=== PATIENT | male | born 1965 | race Caucasian/White ===

== ENCOUNTER 2020-12-16 10:29 | Emergency (ER) | payer MEDICARE ==
[~2020-12-16] VITALS: Ht 170 cm; Wt 65.0 kg
[2020-12-16 10:42] VITALS: BP_SYST 152
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
== END 2020-12-16 11:05 | disposition home or self-care (01) ==
LOC: EDUNIT# 10:29 → ER FS 10:32
DX: S05.12XA Contusion of eyeball and orbital tissues, left eye, initial encounter (principal); S60.212A Contusion of left wrist, initial encounter; Y04.8XXA Assault by other bodily force, initial encounter
CPT/HCPCS: 99281

== ENCOUNTER 2021-05-27 14:13 | Emergency (ER) | payer MEDICARE ==
--- NOTE | 2021-05-27 14:23 | ED Psychosocial ---
General Stated Complaint: PSYCH EVALUATION WORK UP History of Present Illness Date Seen by Provider: May 27, 2021 Time Seen by Provider: 14:18 Initial Comments 55-year-old male sent in by [facility] for psych evaluation. States he is concerned because he showed up to his appointment in inappropriate clothing for the weather. Patient has a history of bipolar and I do not feel he is taking his meds or any of his medications correctly or as prescribed. Patient himself denies any suicidal or homicidal ideation. Patient is not sure exactly why they sent him over here. He had no complaints to me Allergies and Home Medications Patient Home Medication List Home Medication List Reviewed: Yes Review of Systems Constitutional: No chills, No fever EENTM: no symptoms reported Respiratory: no symptoms reported Cardiovascular: no symptoms reported Gastrointestinal: no symptoms reported Genitourinary: no symptoms reported Musculoskeletal: no symptoms reported Skin: no symptoms reported Psychiatric/Neurological: See HPI Physical Exam Vital Signs - First Documented 05/27/21 14:26 Temp 36.5 Pulse 112 Resp 16 B/P (MAP) 128/72 (90) Pulse Ox 97 O2 Delivery Room Air Capillary Refill : Height, Weight, BMI Height: '" Weight: lbs. oz. kg; 22.00 BMI Method: General Appearance: WD/WN, no apparent distress HEENT: normal ENT inspection Neck: full range of motion, supple Respiratory: chest non-tender, lungs clear, normal breath sounds Cardiovascular: normal peripheral pulses, regular rate, rhythm Gastrointestinal: non tender, soft Extremities: non-tender, normal inspection Neurologic/Psychiatric: alert Appearance/Memory: disheveled Behavior/Eye Contact: normal speech, avoids eye contact Thoughts/Hallucinations: other (Denies suicidal or homicidal ideations) Skin: normal color, warm/dry Progress/Results/Core Measures Results/Orders Lab Results Laboratory Tests Test 05/27/21 14:28 Range/Units White Blood Count 9.8 4.3-11.0 10^3/uL Red Blood Count 5.82 H 4.30-5.52 10^6/uL Hemoglobin 14.8 13.3-17.7 g/dL Hematocrit 47 40-54 % Mean Corpuscular Volume 81 80-99 fL Mean Corpuscular Hemoglobin 25 25-34 pg Mean Corpuscular Hemoglobin Concent 31 L 32-36 g/dL Red Cell Distribution Width 14.6 H 10.0-14.5 % Platelet Count 294 130-400 10^3/uL Mean Platelet Volume 11.3 9.0-12.2 fL Immature Granulocyte % (Auto) 0 % Neutrophils (%) (Auto) 79 H 42-75 % Lymphocytes (%) (Auto) 14 12-44 % Monocytes (%) (Auto) 5 0-12 % Eosinophils (%) (Auto) 0 0-10 % Basophils (%) (Auto) 1 0-10 % Neutrophils # (Auto) 7.8 1.8-7.8 X 10^3 Lymphocytes # (Auto) 1.4 1.0-4.0 X 10^3 Monocytes # (Auto) 0.5 0.0-1.0 X 10^3 Eosinophils # (Auto) 0.0 0.0-0.3 10^3/uL Basophils # (Auto) 0.1 0.0-0.1 10^3/uL Immature Granulocyte # (Auto) 0.0 0.0-0.1 10^3/uL My Orders Orders - LEANA CAZARES DO Ua Culture If Indicated (05/27/21 14:25) Cbc With Automated Diff (05/27/21 14:25) Comprehensive Metabolic Panel (05/27/21 14:25) Alcohol (05/27/21 14:25) Drug Screen Stat (Urine) (05/27/21 14:25) Acetaminophen (05/27/21 14:25) Salicylate (05/27/21 14:25) Bh Status Checks/Observation Q15M (05/27/21 14:25) Vital Signs/I&O 05/27/21 14:26 Temp 36.5 Pulse 112 Resp 16 B/P (MAP) 128/72 (90) Pulse Ox 97 O2 Delivery Room Air Progress Progress Note : Progress Note Patient did not feel he needed to be here, patient was not wanting a psych evaluation. He is not homicidal or suicidal. In the absence of any homicidal suicidal ideations I do not feel there is a need to hold him. He wants to leave AMA and will go back over to [facility]. Patient was stable upon leaving the ER Initial ECG Impression Date: May 27, 2021 Initial ECG Impression Time: 14:24 Initial ECG Rate: 97 Initial ECG Rhythm: Normal Sinus, PAC Initial ECG Impression: Nonspecific Changes Comment no acute changes Departure Impression Primary Impression: Encounter for psychological evaluation Disposition: 07 AGAINST MEDICAL ADVICE Condition: Stable Departure-Patient Inst. Referrals: SELF,LAURENT VILLA (PCP/Family) Primary Care Physician LEANA CAZARES DO May 27, 2021 14:23
[2021-05-27 14:26] VITALS: BP 128/72
[2021-05-27 14:38] LABS: BASOPHILS % (AUTO) 1 % (0-10); EOSINOPHILS % (AUTO) 0 % (0-10); HEMATOCRIT 47 % (40-54); HEMOGLOBIN 14.8 g/dL (13.3-17.7); LYMPHOCYTES % (AUTO) 14 % (12-44); MEAN CORPUSCULAR HEMOGLOBIN 25 pg (25-34); MEAN CORPUSCULAR HGB CONC 31 g/dL (32-36); MEAN CORPUSCULAR VOLUME 81 fL (80-99); MEAN PLATELET VOLUME 11.3 fL (9.0-12.2); MONOCYTES % (AUTO) 5 % (0-12); NEUTROPHILS % (AUTO) 79 % (42-75); PLATELET COUNT 294 10^3/uL (130-400); WHITE BLOOD COUNT 9.8 10^3/uL (4.3-11.0)
[2021-05-27 14:39] LABS: BASOPHILS # (AUTO) 0.1 10^3/uL (0.0-0.1); LYMPHOCYTES # (AUTO) 1.4 X 10^3 (1.0-4.0); MONOCYTES # (AUTO) 0.5 X 10^3 (0.0-1.0); NEUTROPHILS # (AUTO) 7.8 X 10^3 (1.8-7.8)
[2021-05-27 15:01] LABS: ALANINE AMINOTRANSFERASE 27 U/L (0-55); ALKALINE PHOSPHATASE 91 U/L (40-136); BILIRUBIN,TOTAL 0.9 MG/DL (0.1-1.0); BUN/CREATININE RATIO 13; CALCIUM 9.2 MG/DL (8.5-10.1); CARBON DIOXIDE 25 MMOL/L (21-32); CHLORIDE 101 MMOL/L (98-107); CREATININE SERUM 0.91 MG/DL (0.60-1.30); GFR ESTIMATED 99; GLUCOSE 171 MG/DL (70-105); POTASSIUM 3.5 MMOL/L (3.6-5.0); SODIUM 141 MMOL/L (135-145); TOTAL PROTEIN 7.4 GM/DL (6.4-8.2)
[2021-05-27 15:02] LABS: ACETAMINOPHEN < 10 UG/ML (10-30); SALICYLATE < 0.3 MG/DL (5.0-20.0)
== END 2021-05-27 14:41 | disposition left against medical advice (07) ==
LOC: EDUNIT# 14:13 → ER FS 14:16
DX: Z13.30 Encounter for screening examination for mental health and behavioral disorders, unspecified (principal)
CPT/HCPCS: 36415; 80053; 85025; 99283; G0480 ×3; 80320; 80329; 93005

== ENCOUNTER 2022-04-13 03:03 | Emergency (ER) | payer MEDICARE ==
[2022-04-13] MEDS ORDERED: TETANUS,DIPTH,PERTUSS P/F (BOOSTRIX) 0.5 ML VIAL IM ONE (03:15)
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
[2022-04-13 03:19] LABS: BASOPHILS # (AUTO) 0.2 10^3/uL (0.0-0.1); BASOPHILS % (AUTO) 1 % (0-10); EOSINOPHILS # (AUTO) 0.1 10^3/uL (0.0-0.3); EOSINOPHILS % (AUTO) 0 % (0-10); HEMATOCRIT 48 % (40-54); HEMOGLOBIN 14.4 g/dL (13.3-17.7); LYMPHOCYTES # (AUTO) 4.7 10^3/uL (1.0-4.0); LYMPHOCYTES % (AUTO) 15 % (12-44); MEAN CORPUSCULAR HEMOGLOBIN 25 pg (25-34); MEAN CORPUSCULAR HGB CONC 30 g/dL (32-36); MEAN CORPUSCULAR VOLUME 83 fL (80-99); MONOCYTES # (AUTO) 1.1 10^3/uL (0.0-1.0); MONOCYTES % (AUTO) 3 % (0-12); NEUTROPHILS # (AUTO) 24.4 10^3/uL (1.8-7.8); NEUTROPHILS % (AUTO) 78 % (42-75); PLATELET COUNT 440 10^3/uL (130-400)
[2022-04-13 03:26] LABS: WHITE BLOOD COUNT 31.5 10^3/uL (4.3-11.0)
[2022-04-13] MEDS ORDERED: NS IV 1000 ML 1,000 ML IV SCH (03:30)
[2022-04-13] MEDS ORDERED: CEFEPIME INJECTION 1,000 MG in NS (IVPB) 50 ML IV ONE (03:30)
[2022-04-13 03:51] LABS: BAND NEUTROPHILS 2 %; LYMPHOCYTES % (MANUAL) 12 %; METAMYELOCYTES % 1 %; MONOCYTES % (MANUAL) 4 %; MYELOCYTES % 3 %; NEUTROPHILS % (MANUAL) 77 %; REACTIVE LYMPHOCYTES 1 %
[2022-04-13 03:52] LABS: PLATELET ESTIMATE INCREASED; RBC MORPH NORMAL
[2022-04-13 03:55] LABS: CHLORIDE 103 MMOL/L (98-107); POTASSIUM 4.2 MMOL/L (3.6-5.0); SODIUM 142 MMOL/L (135-145)
[2022-04-13 03:56] LABS: ALANINE AMINOTRANSFERASE 41 U/L (0-55); ALKALINE PHOSPHATASE 278 U/L (40-136); BILIRUBIN,TOTAL 0.2 MG/DL (0.1-1.0); BUN/CREATININE RATIO 12; CALCIUM 9.1 MG/DL (8.5-10.1); CARBON DIOXIDE 10 MMOL/L (21-32); CREATININE SERUM 1.29 MG/DL (0.60-1.30); GFR ESTIMATED 65; GLUCOSE 350 MG/DL (70-105); MAGNESIUM 2.5 MG/DL (1.6-2.4)
[2022-04-13 03:57] LABS: ALBUMIN 3.5 GM/DL (3.2-4.5); LIPASE 26 U/L (8-78); TOTAL PROTEIN 7.9 GM/DL (6.4-8.2)
[2022-04-13 03:59] LABS: PROTHROMBIN TIME PATIENT 13.6 SEC (12.2-14.7)
[2022-04-13 04:18] LABS: BILIRUBIN,URINE NEGATIVE (NEGATIVE); CLARITY,URINE SL CLOUDY; COLOR,URINE YELLOW; GLUCOSE, URINE (UA) NEGATIVE (NEGATIVE); KETONES,URINE NEGATIVE (NEGATIVE); LEUKOCYTE ESTERASE ,URINE NEGATIVE (NEGATIVE); NITRITE,URINE NEGATIVE (NEGATIVE); PROTEIN,URINE TRACE (NEGATIVE)
[2022-04-13 04:30] LABS: AMPHETAMINE SCREEN, URINE NEGATIVE (NEGATIVE); BARBITURATE SCREEN URINE NEGATIVE (NEGATIVE); BENZODIAZEPINES SCREEN URINE NEGATIVE (NEGATIVE); CANNABINOID SCREEN, URINE NEGATIVE (NEGATIVE); COCAINE SCREEN URINE NEGATIVE (NEGATIVE); METHADONE STAT NEGATIVE (NEGATIVE); OPIATE SCREEN URINE NEGATIVE (NEGATIVE); OXYCODONE STAT NEGATIVE (NEGATIVE); PROPOXYPHENE STAT NEGATIVE (NEGATIVE); TRICYCLIC ANTIDEPRESSANTS SCRE NEGATIVE (NEGATIVE)
[2022-04-13 04:31] VITALS: BP 144/33
[2022-04-13 04:33] LABS: AMORPHOUS SEDIMENT,UR FEW AMOR URATES /LPF; BACTERIA,URINE NEGATIVE /HPF; RBC,URINE RARE /HPF; RENAL EPITHELIAL CELLS,URINE 0-2 /HPF; WBC,URINE 0-2 /HPF
[2022-04-13 04:34] LABS: GRANULAR CASTS,URINE 0-2 /LPF
--- NOTE | 2022-04-13 06:08 | Diagnostic Imaging Report ---
Clinical indication: Patient brought in for follow-up. Possible head injury. Exam: Head CT without IV contrast with sagittal and coronal reformations. Axial CT scan of the cervical spine with sagittal and coronal reformations. Auto Exposure Controls were utilized during the CT exam to meet ALARA standards for radiation dose reduction. Comparison: None. Findings: Head CT: There is no evidence of acute cerebral infarct, intracranial hemorrhage, or gross mass effect. The brain parenchymal volume appears appropriate for patient's age. There is normal gabriel-white matter distinction. There is no significant midline shift or herniation. There is no evidence of hydrocephalus. The basal cisterns are unremarkable. The skull, extracranial soft tissue, and orbits are unremarkable. There is mild mucosal thickening involving both maxillary sinuses with the left side more than the right. Temporal bones show no significant abnormality. Cervical spine: There is no acute cervical spine fracture or dislocation. There are mildly hypertrophic spurs involving the cervical spine. There is at least moderate left C5-C6 neural foramen narrowing due to uncinate spurs and moderate left C3-C4 neural foramen narrowing due to uncinate spurs. There is no significant bony central canal narrowing. There is no significant neck soft tissue abnormality. Visualized upper lung antonio are clear. Impression: 1: There is no evidence of acute intracranial process. There is no skull fracture. 2: There is cervical spine degenerative disease with no acute fracture or dislocation. I agree with [employer] report. Dictated by: Dictated on workstation # [id number]
--- NOTE | 2022-04-13 08:29 | Diagnostic Imaging Report ---
Clinical indications: Patient is status post fall and altered mental status. EXAM: CT scan of the chest, abdomen and pelvis, without IV contrast. Sagittal and coronal reformatted images are created. Auto Exposure Controls were utilized during the CT exam to meet ALARA standards for radiation dose reduction. COMPARISON: None. FINDINGS: CHEST: There is mild atelectasis involving the posterior aspects of both lungs. There is no pleural effusion or pneumothorax. There is no mediastinal mass, fluid collection or lymphadenopathy. There is no hilar lymphadenopathy. There is no axillary lymphadenopathy. There is air and fluid mildly distended esophagus seen which may related to gastroesophageal reflux or esophageal dysmotility. ABDOMEN AND PELVIS: The liver, pancreas, and adrenal glands are unremarkable. There is calcified granuloma within the spleen. Spleen is otherwise unremarkable. Gallbladder is predominantly decompressed. Gallbladder is unremarkable as visualized. There are nonobstructive stones within the left kidney with the largest one measuring 5 mm in the upper pole left kidney. There is no hydronephrosis. Bladder is significantly fluid-filled with diffuse bladder wall thickening. There are small diverticulum involving the posterior superior aspect of the bladder. Prostate gland is mildly enlarged measuring 5.0 cm in transverse dimensions. There is diverticulosis involving the descending colon with no CT evidence of diverticulitis. Appendix is unremarkable. Hiatal hernia seen. There is no intra-abdominal free air or free fluid. There is no intra-abdominal pelvic lymphadenopathy. Extra abdominal and extrapelvic soft tissue structures are unremarkable. BONES: There is a transitional lumbosacral vertebra which will be designated as S1. There is a small S1-S2 intervertebral disk. There are mild compression fracture deformities involving the T5, T6, T8, T9, T10, T12, L1, L4, and L5 vertebra. There is roughly 25% loss of height involving the upper aspect of the L5 vertebra. There is roughly 3 mm of retropulsed component of the upper aspect of the L5 vertebra. There is no significant central canal narrowing at the L5 burst fracture region. The rest of the above-described fractures demonstrate roughly 10% or less loss of height. There is a slightly impacted slightly displaced fracture left femoral neck with varus angulation. The left femoroacetabular joint space is intact. There are no other fractures seen. IMPRESSION: 1: There are acute mild compression fracture deformities involving the T5, T6, T8, T9, T10, T12, L1, and L4 vertebra. 2: There is a mild burst fracture involving the upper aspect of the L5 vertebra with no significant central canal stenosis. 3: There is a slightly displaced fracture of the left femoral neck with varus angulation. The left femoral acetabular joint spaces intact. 4: There is no other acute thoracic, abdominal or pelvic abnormality. There is no pneumothorax, intra-abdominal free fluid or air. There is no solid organ injury. I agree with [employer] report. Dictated by: Dictated on workstation # [id number]
== END 2022-04-13 04:55 | disposition short-term general hospital (02) ==
LOC: EDUNIT# 03:03 → ER FS 03:05
DX: S72.002A Fracture of unspecified part of neck of left femur, initial encounter for closed fracture (principal); S22.050A Wedge compression fracture of T5-T6 vertebra, initial encounter for closed fracture; S32.051A Stable burst fracture of fifth lumbar vertebra, initial encounter for closed fracture; S32.030A Wedge compression fracture of third lumbar vertebra, initial encounter for closed fracture; S00.81XA Abrasion of other part of head, initial encounter; J96.90 Respiratory failure, unspecified, unspecified whether with hypoxia or hypercapnia; I95.89 Other hypotension; Z28.310 Unvaccinated for COVID-19; Z20.822 Contact with and (suspected) exposure to COVID-19; W18.30XA Fall on same level, unspecified, initial encounter
CPT/HCPCS: 36415; 51702; 70450; 71250; 72125; 74176; 80053; 80306; 81000; 83605; 83690; 83735; 84484; 85007; 85027; 85610; 85730; 87040; 87077; 87186; 87636; 90715

== ENCOUNTER 2022-09-13 06:38 | Emergency (ER) | payer MEDICARE, MEDICAID ==
[2022-09-13 06:39] VITALS: BP 159/77
[2022-09-13] MEDS ORDERED: NS IV 1000 ML 1,000 ML IV STA (06:43)
[2022-09-13] MEDS ORDERED: LEVE500T99 PO (06:52)
--- NOTE | 2022-09-13 06:52 | ED General ---
General Chief Complaint: Neurological Problems Stated Complaint: SEIZURE Source of Information: Patient, EMS, Senior Care Records, Old Records Exam Limitations: No Limitations (IMELDA FISHER MD) History of Present Illness Date Seen by Provider: September 13, 2022 Time Seen by Provider: 06:40 Initial Comments 57-year-old male with developmental delay coming in via EMS from his assisted living facility after a seizure-like episode. He had witnessed convulsions lasting a couple minutes where he turned blue. On EMS arrival, he was no longer seizing, and was postictal. He had urinated on himself. His glucose was just above 160. Vitals were otherwise unremarkable for EMS. Reportedly does not have a seizure disorder, but has had a seizure a couple of months ago per long term staff. He does not take any medicines for this. Otherwise denying any fever, cough, chest pain, shortness of breath, abdominal pain, or any other concerns. (IMELDA FISHER MD) Allergies and Home Medications Allergies Coded Allergies: No Known Drug Allergies (Unverified , 04/13/22) Patient Home Medication List Home Medication List Reviewed: Yes (IMELDA FISHER MD) Home Medication List Reviewed: Yes (SUE CLINE MD) Levetiracetam (Keppra) 500 Mg Tablet, 500 MG PO BID Prescribed by: IMELDA FISHER on 09/13/22 0652 Review of Systems Review of Systems Constitutional: No fever EENTM: no symptoms reported Respiratory: see HPI Cardiovascular: no symptoms reported Gastrointestinal: no symptoms reported Genitourinary: no symptoms reported Musculoskeletal: no symptoms reported Skin: no symptoms reported Psychiatric/Neurological: See HPI Hematologic/Lymphatic: No Symptoms Reported (IMELDA FISHER MD) All Other Systems Reviewed Negative Unless Noted: Yes (IMELDA FISHER MD) Past Lvucqbn-Alabzy-Yqhhxe Hx Patient Social History Substance use?: No (IMELDA FISHER MD) Immunizations Up To Date First/Initial COVID19 Vaccinat: Yes Second COVID19 Vaccination Danny: Yes (IMELDA FISHER MD) Past Medical History Surgery/Hospitalization HX: Patient poor historian, unknown (IMELDA FISHER MD) Physical Exam Vital Signs Vital Signs - First Documented 09/13/22 06:39 Pulse 96 Resp 18 B/P (MAP) 159/77 (104) Pulse Ox 94 O2 Delivery Room Air (SUE CLINE MD) Vital Signs Capillary Refill : (IMELDA FISHER MD) Height, Weight, BMI Height: '" Weight: lbs. oz. kg; BMI Method: General Appearance: No Apparent Distress, WD/WN, Other (Follow-up on the left side of his mouth, covered in urine) Eyes: Bilateral Eye Normal Inspection, Bilateral Eye PERRL HEENT: PERRL/EOMI, Normal ENT Inspection, Pharynx Normal Neck: Full Range of Motion, Normal Inspection, Non Tender, Supple Respiratory: Chest Non Tender, Lungs Clear, Normal Breath Sounds, No Accessory Muscle Use, No Respiratory Distress Cardiovascular: Regular Rate, Rhythm, No Edema, Normal Peripheral Pulses Gastrointestinal: Normal Bowel Sounds, Non Tender, Soft; No Distended, No G uarding Back: Normal Inspection, No CVA Tenderness, No Vertebral Tenderness Extremity: Normal Capillary Refill, Normal Inspection, Normal Range of Motion, Non Tender, No Calf Tenderness, No Pedal Edema Neurologic/Psychiatric: Alert, Oriented x3, No Motor/Sensory Deficits, Normal Mood/Affect, strength and conditioning coach II-XII Norm as Tested Skin: Normal Color, Warm/Dry (IMELDA FISHER MD) Focused Exam Lactate Level 09/13/22 06:44: Lactic Acid Level 9.36*H 09/13/22 08:14: Lactic Acid Level 2.62*H (SUE CLINE MD) Lactic Acid Level Laboratory Tests Test 09/13/22 06:44 09/13/22 08:14 Lactic Acid Level 9.36 MMOL/L (0.50-2.00) *H 2.62 MMOL/L (0.50-2.00) *H (SUE CLINE MD) Progress/Results/Core Measures Suspected Sepsis SIRS Temperature: Pulse: Respiratory Rate: Laboratory Tests 09/13/22 06:44: Blood Pressure / Mean: 09/13/22 06:44: Laboratory Tests 09/13/22 06:44: (IMELDA FISHER MD) Results/Orders Lab Results Laboratory Tests Test 09/13/22 06:44 09/13/22 08:14 09/13/22 08:37 Range/Units White Blood Count 10.7 4.3-11.0 10^3/uL Red Blood Count 5.37 4.30-5.52 10^6/uL Hemoglobin 11.5 L 13.3-17.7 g/dL Hematocrit 40 40-54 % Mean Corpuscular Volume 74 L 80-99 fL Mean Corpuscular Hemoglobin 21 L 25-34 pg Mean Corpuscular Hemoglobin Concent 29 L 32-36 g/dL Red Cell Distribution Width 15.9 H 10.0-14.5 % Platelet Count 487 H 130-400 10^3/uL Mean Platelet Volume 10.3 9.0-12.2 fL Immature Granulocyte % (Auto) 2 % Neutrophils (%) (Auto) 57 42-75 % Lymphocytes (%) (Auto) 32 12-44 % Monocytes (%) (Auto) 6 0-12 % Eosinophils (%) (Auto) 2 0-10 % Basophils (%) (Auto) 1 0-10 % Neutrophils # (Auto) 6.2 1.8-7.8 10^3/uL Lymphocytes # (Auto) 3.4 1.0-4.0 10^3/uL Monocytes # (Auto) 0.7 0.0-1.0 10^3/uL Eosinophils # (Auto) 0.3 0.0-0.3 10^3/uL Basophils # (Auto) 0.1 0.0-0.1 10^3/uL Immature Granulocyte # (Auto) 0.2 H 0.0-0.1 10^3/uL Percent Immature Platelet Fraction 3.6 0.0-7.6 % Prothrombin Time 13.5 12.2-14.7 SEC INR Comment 1.0 0.8-1.4 Activated Partial Thromboplast Time 31 24-35 SEC Sodium Level 141 135-145 MMOL/L Potassium Level 4.0 3.6-5.0 MMOL/L Chloride Level 99 98-107 MMOL/L Carbon Dioxide Level 18 L 21-32 MMOL/L Anion Gap 24 H 5-14 MMOL/L Blood Urea Nitrogen 11 7-18 MG/DL Creatinine 0.98 0.60-1.30 MG/DL Estimat Glomerular Filtration Rate 89 BUN/Creatinine Ratio 11 Glucose Level 184 H 70-105 MG/DL Lactic Acid Level 9.36 *H 2.62 *H 0.50-2.00 MMOL/L Calcium Level 9.3 8.5-10.1 MG/DL Corrected Calcium 9.9 8.5-10.1 MG/DL Magnesium Level 1.7 1.6-2.4 MG/DL Total Bilirubin 0.2 0.1-1.0 MG/DL Aspartate Amino Transf (AST/SGOT) 16 5-34 U/L Alanine Aminotransferase (ALT/SGPT) 14 0-55 U/L Alkaline Phosphatase 123 40-136 U/L Troponin I < 0.30 <0.30 NG/ML Pro-B-Type Natriuretic Peptide 160.3 H <125.0 PG/ML Total Protein 7.8 6.4-8.2 GM/DL Albumin 3.3 3.2-4.5 GM/DL Lipase 22 8-78 U/L Urine Color YELLOW Urine Clarity CLEAR Urine pH 6.0 5-9 Urine Specific [place] 1.020 1.016-1.022 Urine Protein NEGATIVE NEGATIVE Urine Glucose (UA) NEGATIVE NEGATIVE Urine Ketones NEGATIVE NEGATIVE Urine Nitrite NEGATIVE NEGATIVE Urine Bilirubin NEGATIVE NEGATIVE Urine Urobilinogen 0.2 < = 1.0 MG/DL Urine Leukocyte Esterase NEGATIVE NEGATIVE Urine RBC (Auto) NEGATIVE NEGATIVE Urine RBC NONE /HPF Urine WBC 0-2 /HPF Urine Squamous Epithelial Cells RARE /HPF Urine Crystals NONE /LPF Urine Bacteria NEGATIVE /HPF Urine Casts NONE /LPF Urine Mucus MODERATE H /LPF Urine Culture Indicated NO Urine Opiates Screen NEGATIVE NEGATIVE Urine Oxycodone Screen NEGATIVE NEGATIVE Urine Methadone Screen NEGATIVE NEGATIVE Urine Propoxyphene Screen NEGATIVE NEGATIVE Urine Barbiturates Screen NEGATIVE NEGATIVE Ur Tricyclic Antidepressants Screen NEGATIVE NEGATIVE Urine Phencyclidine Screen NEGATIVE NEGATIVE Urine Amphetamines Screen NEGATIVE NEGATIVE Urine Methamphetamines Screen NEGATIVE NEGATIVE Urine Benzodiazepines Screen NEGATIVE NEGATIVE Urine Cocaine Screen NEGATIVE NEGATIVE Urine Cannabinoids Screen NEGATIVE NEGATIVE (SUE CLINE MD) My Orders Orders - SUE CLINE MD Lactic Acid Analyzer (09/13/22 08:08) Straight Cath For Spec.-Adult (09/13/22 08:31) (SUE CLINE MD) Vital Signs/I&O 09/13/22 06:39 Pulse 96 Resp 18 B/P (MAP) 159/77 (104) Pulse Ox 94 O2 Delivery Room Air (SUE CLINE MD) Vital Signs/I&O Capillary Refill : (IMELDA FISHER MD) Progress Note : Progress Note 57-year-old male with above history coming in after seizure-like episode. ABCs were intact and vitals were stable on presentation. Glucose just above 160 for EMS. An IV was placed and basic labs were obtained. CT head and chest x-ray ordered to assess for intracranial hemorrhage versus large mass versus other sources of infection in his lungs could lower his seizure threshold. On my interpretation of the CT head I do not see any obvious intracranial hemorrhage or large mass. It appears similar to his prior CT head from April of last year. EKG ordered and interpreted by me showing no acute ischemic changes. He was given a bolus of IV fluids as well as Keppra. He will be signed out to the oncoming physician pending his work-up. The patient is known to myself and the nursing staff, and he does seem to be at his mental baseline. I suspect if his work-up is normal, he likely will go back to the assisted living facility with outpatient neurology follow-up. I will personally send in a prescription for Keppra as an outpatient to give the patient time to follow-up with a neurologist and/or his PCP. (IMELDA FISHER MD) Progress Note #1: Time: 07:15 Progress Note I assumed care of the patient from Dr. Fisher at shift change. The lactic acid was called from the lab and a value of 9.36. This would be consistent with him having a seizure this morning. He is getting IV fluids and we will recheck the level of value. His complete blood count does not show an elevated white blood cell count as it is 10.7. He had no acute abnormalities on his CT head compared to one from April 2022. On my personal interpretation of the 1 view chest x-ray I did not appreciate any acute infiltrate or mass. Progress Note #2: Time: 07:34 Progress Note Comprehensive metabolic profile showed mild elevation of his anion gap to 24 and CO2 of 18 which again would be consistent with his seizure activity. His glucose was slightly elevated to 184. He had a negative troponin less than 0.3. His lipase was not elevated at 22. No specific source for infection found on testing or exam. Will obtain urinalysis and allow fluids and Keppra to finish infusing. Will repeat the lactic acid after the fluids have infused to ensure that it was coming down and again showing that it was consistent with him having a seizure this morning. It was confirmed by a friend that had come in with him, Johnny Nicholson, that he has had seizures before. This goes along with the nursing report from [facility] that he had previously had a seizure. Anticipate continuing on plan of discharged home with Keppra prescription that had already been sent to the pharmacy. This would give him a chance to follow-up with primary care and get in with neurology if needed for continued evaluation and work-up. Progress Note #3: Time: 08:21 Progress Note Patient continues to do well without any new complaints. He has had no seizure activity here in the ED. Tolerating p.o. A repeat lactic acid was sent to the lab after fluids infused. We will add on a straight cath for specimen since he has tried to pee twice but has not been able to provide a specimen and he does wear adult briefs. Progress Note #4: Time: 08:49 Progress Note Lab called to notify us that the repeat lactic acid did come down to 2.62. Again with no specific infection found on exam or testing this gives further validity to a lactic acid being elevated from seizure activity. Awaiting urine and will have paperwork ready for discharge to home 0856 UA without infection and UDS all clear. Will release to [facility] and have them start him on Keppra bid 1 month supply until he can check back with Dr. Bennett or Neurology (SUE CLINE MD) ECG Initial ECG Impression Date: September 13, 2022 Initial ECG Impression Time: 06:45 Initial ECG Rate: 95 Initial ECG Rhythm: Normal Sinus Comment Narrow QRS, normal axis, no significant ST changes or T wave abnormalities (IMELDA FISHER MD) Initial ECG Comparisson: Unchanged (May) Comment Normal sinus rhythm with a heart rate of 95 bpm and a [place] interval of [address] elevation. QT interval 372 ms with a QTc interval 425 ms. Overall appears similar to prior tracing from May 27, 2021. (SUE CLINE MD) Diagnostic Imaging Diagonstic Imaging: Xray (chest), CT (head) (IMELDA FISHER MD) Diagonstic Imaging: CT (head) Plain Films/CT/US/NM/MRI: head Comments NAME: JOEL BAUTISTA [facility] REC#: [id number] PT STATUS: REG ER : 1965 PHYSICIAN: IMELDA FISHER MD ADMIT DATE: 09/13/22/ER FS Draft Date of Exam:09/13/22 CT HEAD WO PROCEDURE: CT head without contrast. TECHNIQUE: Multiple contiguous axial images were obtained through the brain without the use of intravenous contrast. Auto Exposure Controls were utilized during the CT exam to meet ALARA standards for radiation dose reduction. INDICATION: 57-year-old male with altered mental status Comparisons: 04/13/2022 FINDINGS: Midline structures are not displaced. Lateral, 3rd and 4th ventricles are normal in size, shape and anatomic position. There is no mass, mass effect, hydrocephalus or hemorrhage. Aguilar-white differentiation is normal. There is no sulcal effacement. There are no abnormal extra-axial fluid collections or hemorrhage. Basilar cisterns appear normal. Sinuses, orbits and mastoid air cells are unremarkable. Bone windows show no calvarial changes. IMPRESSION: Some mild atrophy. Otherwise unremarkable nonenhanced CT brain. If symptoms warrant or persist an MRI may be of further value. Dictated on workstation # [id number] Dict: 09/13/22705 Trans: 09/13/22 0710 [facility] [id number] Interpreted by: NIGHAT TEE MD Electronically signed by: Reviewed: Reviewed by Me (I reviewed the radiologist report at 11 16) Diagonstic Imaging: Xray Plain Films/CT/US/NM/MRI: chest Comments [facility] [place] NAME: JOEL BAUTISTA [facility] REC#: [id number] PT STATUS: REG ER : 1965 PHYSICIAN: IMELDA FISHER MD ADMIT DATE: 09/13/22/ER FS Draft Date of Exam:09/13/22 CHEST 1 VIEW AP/PA ONLY Indication: Altered mental status, shortness of breath Comparisons: None FINDINGS: Single view chest shows the cardiac contour to be upper limits normal. No consolidations are seen. There is some mild central venous prominence. Background chronic parenchymal changes are seen. There is no effusion or pneumothorax. There is a moderate to large hiatal hernia. Soft tissues and bony thorax are unremarkable. IMPRESSION:. 1. Some mild central venous prominence with some chronic background parenchymal changes but no acute consolidations. 2. Moderate size hiatal hernia. Dictated on workstation # [id number] Dict: 09/13/22723 Trans: 09/13/22 0734 [facility] [id number] Interpreted by: NIGHAT TEE MD Electronically signed by: Reviewed: Reviewed by Me (SUE CLINE MD) Departure Impression Primary Impression: Observed seizure-like activity Disposition: HOME, SELF-CARE Condition: Stable Departure-Patient Inst. Decision time for Depature: 08:56 (SUE CLINE MD) Referrals: SELFLAURENT MD (PCP/Family) Primary Care Physician Patient Instructions: Seizures, Adult ED Add. Discharge Instructions: Stay well-hydrated and drink plenty of fluids. Start taking the Keppra 500 mg twice a day for seizures. Check with primary care about further work-up and evaluation of the new onset seizures. All discharge instructions reviewed with patient and/or family. Voiced understanding. Scripts Levetiracetam (Keppra) 500 Mg Tablet 500 MG PO BID for 30 Days, #60 TAB Prov: IMELDA FISHER MD 09/13/22 IMELDA FISHER MD September 13, 2022 06:52 SUE CLINE MD September 13, 2022 07:18
[2022-09-13 07:09] LABS: BASOPHILS # (AUTO) 0.1 10^3/uL (0.0-0.1); BASOPHILS % (AUTO) 1 % (0-10); EOSINOPHILS # (AUTO) 0.3 10^3/uL (0.0-0.3); EOSINOPHILS % (AUTO) 2 % (0-10); HEMATOCRIT 40 % (40-54); HEMOGLOBIN 11.5 g/dL (13.3-17.7); LYMPHOCYTES # (AUTO) 3.4 10^3/uL (1.0-4.0); LYMPHOCYTES % (AUTO) 32 % (12-44); MEAN CORPUSCULAR HEMOGLOBIN 21 pg (25-34); MEAN CORPUSCULAR HGB CONC 29 g/dL (32-36); MEAN CORPUSCULAR VOLUME 74 fL (80-99); MEAN PLATELET VOLUME 10.3 fL (9.0-12.2); MONOCYTES # (AUTO) 0.7 10^3/uL (0.0-1.0); MONOCYTES % (AUTO) 6 % (0-12); NEUTROPHILS # (AUTO) 6.2 10^3/uL (1.8-7.8); NEUTROPHILS % (AUTO) 57 % (42-75); PLATELET COUNT 487 10^3/uL (130-400); WHITE BLOOD COUNT 10.7 10^3/uL (4.3-11.0)
--- NOTE | 2022-09-13 07:10 | Diagnostic Imaging Report ---
PROCEDURE: CT head without contrast. TECHNIQUE: Multiple contiguous axial images were obtained through the brain without the use of intravenous contrast. Auto Exposure Controls were utilized during the CT exam to meet ALARA standards for radiation dose reduction. INDICATION: 57-year-old male with altered mental status Comparisons: 04/13/2022 FINDINGS: Midline structures are not displaced. Lateral, 3rd and 4th ventricles are normal in size, shape and anatomic position. There is no mass, mass effect, hydrocephalus or hemorrhage. Aguilar-white differentiation is normal. There is no sulcal effacement. There are no abnormal extra-axial fluid collections or hemorrhage. Basilar cisterns appear normal. Sinuses, orbits and mastoid air cells are unremarkable. Bone windows show no calvarial changes. IMPRESSION: Some mild atrophy. Otherwise unremarkable nonenhanced CT brain. If symptoms warrant or persist an MRI may be of further value. Dictated by: Dictated on workstation # [id number]
[2022-09-13 07:11] LABS: PROTHROMBIN TIME PATIENT 13.5 SEC (12.2-14.7)
[2022-09-13 07:27] LABS: SODIUM 141 MMOL/L (135-145)
[2022-09-13 07:28] LABS: ALANINE AMINOTRANSFERASE 14 U/L (0-55); ALKALINE PHOSPHATASE 123 U/L (40-136); BILIRUBIN,TOTAL 0.2 MG/DL (0.1-1.0); BUN/CREATININE RATIO 11; CALCIUM 9.3 MG/DL (8.5-10.1); CARBON DIOXIDE 18 MMOL/L (21-32); CHLORIDE 99 MMOL/L (98-107); CREATININE SERUM 0.98 MG/DL (0.60-1.30); GFR ESTIMATED 89; GLUCOSE 184 MG/DL (70-105); MAGNESIUM 1.7 MG/DL (1.6-2.4); TOTAL PROTEIN 7.8 GM/DL (6.4-8.2)
[2022-09-13 07:29] LABS: ALBUMIN 3.3 GM/DL (3.2-4.5); LIPASE 22 U/L (8-78)
--- NOTE | 2022-09-13 07:34 | Diagnostic Imaging Report ---
Indication: Altered mental status, shortness of breath Comparisons: None FINDINGS: Single view chest shows the cardiac contour to be upper limits normal. No consolidations are seen. There is some mild central venous prominence. Background chronic parenchymal changes are seen. There is no effusion or pneumothorax. There is a moderate to large hiatal hernia. Soft tissues and bony thorax are unremarkable. IMPRESSION:. 1. Some mild central venous prominence with some chronic background parenchymal changes but no acute consolidations. 2. Moderate size hiatal hernia. Dictated by: Dictated on workstation # [id number]
[2022-09-13 08:40] LABS: BILIRUBIN,URINE NEGATIVE (NEGATIVE); CLARITY,URINE CLEAR; COLOR,URINE YELLOW; GLUCOSE, URINE (UA) NEGATIVE (NEGATIVE); KETONES,URINE NEGATIVE (NEGATIVE); LEUKOCYTE ESTERASE ,URINE NEGATIVE (NEGATIVE); NITRITE,URINE NEGATIVE (NEGATIVE); PROTEIN,URINE NEGATIVE (NEGATIVE)
[2022-09-13 08:50] LABS: BACTERIA,URINE NEGATIVE /HPF; SQUAMOUS EPITHELIAL CELL,UR RARE /HPF; WBC,URINE 0-2 /HPF
[2022-09-13 08:53] LABS: AMPHETAMINE SCREEN, URINE NEGATIVE (NEGATIVE); BARBITURATE SCREEN URINE NEGATIVE (NEGATIVE); BENZODIAZEPINES SCREEN URINE NEGATIVE (NEGATIVE); CANNABINOID SCREEN, URINE NEGATIVE (NEGATIVE); COCAINE SCREEN URINE NEGATIVE (NEGATIVE); METHADONE STAT NEGATIVE (NEGATIVE); OPIATE SCREEN URINE NEGATIVE (NEGATIVE); OXYCODONE STAT NEGATIVE (NEGATIVE); PROPOXYPHENE STAT NEGATIVE (NEGATIVE); TRICYCLIC ANTIDEPRESSANTS SCRE NEGATIVE (NEGATIVE)
== END 2022-09-13 09:02 | disposition home or self-care (01) ==
LOC: EDUNIT# 06:38 → ER FS 06:40
DX: R56.9 Unspecified convulsions (principal); R79.81 Abnormal blood-gas level; Z28.310 Unvaccinated for COVID-19
CPT/HCPCS: 36415; 70450; 71045; 80053; 80306; 81000; 83605; 83690; 83735; 83880; 84484; 85025; 85610; 85730; 93005